=== PATIENT | male | born 2005 | race Hispanic/Latino ===

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

== ENCOUNTER 2024-11-15 13:43 | Emergency (ER) | payer OTHER, SELFPAY | END 2024-11-15 15:28 | disposition home or self-care (01) | LOC: CSHERS 13:43 | DX: U07.1 COVID-19 (principal) | CPT/HCPCS: 87428; 99283 ==